=== PATIENT | male | born 1945 | race Caucasian/White ===

== ENCOUNTER 2017-08-15 11:33 | Day surgery (SDC) | payer OTHER, BC ==
[~2017-08-15] VITALS: Ht 190.5 cm; Wt 124.0 kg
[~2017-08-15 11:33] MED LIST: AMOXICILLIN875 MG PO; FINASTERIDE5 MG PO; FLOMAX0.4 MG PO; LAMICTAL100 MG PO; METFORMIN HCL750 MG PO; NIACIN500 M1 PO; VITRON-C TABLE1 EACH PO; XARELTO20 MG PO
== END 2017-08-15 15:05 | disposition home or self-care (01) ==
LOC: CATH 11:33
PROVIDERS: Internal Medicine
PROC: 5A2204Z Restoration of Cardiac Rhythm, Single (ICD-10-PCS; principal; 2017-08-15)
DX: I48.92 Unspecified atrial flutter (principal); I45.10 Unspecified right bundle-branch block; I10 Essential (primary) hypertension; E78.2 Mixed hyperlipidemia; E11.9 Type 2 diabetes mellitus without complications; E66.9 Obesity, unspecified; Z68.33 Body mass index [BMI] 33.0-33.9, adult; R06.02 Shortness of breath; F17.210 Nicotine dependence, cigarettes, uncomplicated; G40.909 Epilepsy, unspecified, not intractable, without status epilepticus; Z79.84 Long term (current) use of oral hypoglycemic drugs
CPT/HCPCS: 82948; 93005; J2250